=== PATIENT | female | born 1980 | race Caucasian/White ===

== ENCOUNTER 2018-03-13 20:26 | Emergency (ER) | payer SELFPAY ==
[~2018-03-13] VITALS: Ht 157.5 cm; Wt 59.2 kg
[2018-03-13 21:01] LABS: URINE BILIRUBIN - DIPSTICK NEGATIVE (NEGATIVE); URINE BLOOD DIPSTICK LARGE (NEGATIVE); URINE COLOR YELLOW; URINE GLUCOSE - DIPSTICK NEGATIVE (NEGATIVE); URINE KETONE NEGATIVE (NEGATIVE); URINE LEUK ESTERASE TRACE (NEGATIVE); URINE PROTEIN - DIPSTICK >=300 mg/dL (NEG-TRACE); URINE SPECIFIC GRAVITY >=1.030
[2018-03-13 21:02] LABS: URINE CLARITY CLOUDY; URINE NITRITE - DIPSTICK POSITIVE (Negative)
[2018-03-13 21:03] LABS: URINE RBC 25-50 RBC/hpf (0-5); URINE SQUAMOUS EPITHELIAL CELL MANY EPI/hpf (0-FEW)
[2018-03-13] MEDS ORDERED: BACTRIM DS1 TAB PO (21:16)
[2018-03-13] MEDS ORDERED: PYRIDIUM200 MG PO (21:16)
[2018-03-13 21:19] VITALS: BP 117/78
== END 2018-03-13 21:24 | disposition home or self-care (01) | DRG 690 ==
LOC: ED 20:26
PROVIDERS: Family Medicine
DX: N30.00 Acute cystitis without hematuria (principal); F17.210 Nicotine dependence, cigarettes, uncomplicated

== ENCOUNTER 2020-05-29 16:15 | Emergency (ER) | payer SELFPAY ==
[~2020-05-29] VITALS: Ht 167.6 cm; Wt 59.1 kg
[~2020-05-29 16:15] MED LIST: BACTRIM DS1 TAB PO; PYRIDIUM200 MG PO
[2020-05-29] MEDS ORDERED: BACTRIM DS1 TAB PO (17:04)
[2020-05-29 17:20] VITALS: BP 119/71
== END 2020-05-29 17:20 | disposition home or self-care (01) | DRG 603 ==
LOC: ED 16:15
DX: L02.31 Cutaneous abscess of buttock (principal); F17.200 Nicotine dependence, unspecified, uncomplicated; Z53.20 Procedure and treatment not carried out because of patient's decision for unspecified reasons

== ENCOUNTER 2022-07-09 18:50 | Emergency (ER) | payer SELFPAY ==
[~2022-07-09] VITALS: Ht 167.6 cm; Wt 59.0 kg
[2022-07-09 19:56] LABS: URINE BILIRUBIN - DIPSTICK NEGATIVE (NEGATIVE); URINE BLOOD DIPSTICK LARGE (NEGATIVE); URINE GLUCOSE - DIPSTICK 250 mg/dL (NEGATIVE); URINE KETONE 15 mg/dL (NEGATIVE); URINE PROTEIN - DIPSTICK >=300 mg/dL (NEG-TRACE); URINE SPECIFIC GRAVITY >=1.030; URINE UROBILINOGEN - DIPSTICK >=8.0 E.U./dL (0.2)
[2022-07-09 19:57] LABS: URINE COLOR ORANGE; URINE LEUK ESTERASE MODERATE (NEGATIVE); URINE NITRITE - DIPSTICK POSITIVE (Negative)
[2022-07-09 20:02] LABS: URINE BACTERIA MANY hpf; URINE SQUAMOUS EPITHELIAL CELL MANY EPI/hpf (0-FEW); URINE WBC TNTC WBC/hpf (0-5)
[2022-07-09] MEDS ORDERED: LORTAB 1010 MG PO (20:06)
[2022-07-09] MEDS ORDERED: PYRIDIUM200 MG PO (20:06)
[2022-07-09] MEDS ORDERED: BACTRIM DS1 TAB PO (20:06)
[2022-07-09 20:10] VITALS: BP 125/87
== END 2022-07-09 20:14 | disposition home or self-care (01) | DRG 690 ==
LOC: ED 18:50
PROVIDERS: Emergency Medicine
DX: N39.0 Urinary tract infection, site not specified (principal)

== ENCOUNTER 2022-09-27 19:01 | Emergency (ER) | payer SELFPAY ==
[~2022-09-27] VITALS: Ht 167.6 cm; Wt 56.0 kg
[~2022-09-27 19:01] MED LIST changes: +LORTAB 1010 MG PO
[2022-09-27 19:55] VITALS: BP 116/79
[2022-09-27 20:00] VITALS: BP 110/81
[2022-09-27 20:12] LABS: URINE BILIRUBIN - DIPSTICK NEGATIVE (NEGATIVE); URINE BLOOD DIPSTICK LARGE (NEGATIVE); URINE COLOR YELLOW; URINE GLUCOSE - DIPSTICK NEGATIVE (NEGATIVE); URINE KETONE NEGATIVE (NEGATIVE); URINE PROTEIN - DIPSTICK 100 mg/dL (NEG-TRACE); URINE SPECIFIC GRAVITY >=1.030
[2022-09-27 20:14] LABS: URINE LEUK ESTERASE MODERATE (NEGATIVE); URINE NITRITE - DIPSTICK NEGATIVE (Negative)
[2022-09-27 20:15] VITALS: BP 115/79
[2022-09-27 20:18] LABS: URINE RBC 25-50 RBC/hpf (0-5); URINE SQUAMOUS EPITHELIAL CELL FEW EPI/hpf (0-FEW); URINE WBC >100 WBC/hpf (0-5)
[2022-09-27 20:30] VITALS: BP 116/82
[2022-09-27] MEDS ORDERED: MEDDOSEPAK PO (20:30)
[2022-09-27] MEDS ORDERED: PROAIR HFA IN (20:30)
[2022-09-27] MEDS ORDERED: KEFLEX500 MG PO (20:30)
[2022-09-27 20:45] VITALS: BP 112/75
== END 2022-09-27 21:30 | disposition home or self-care (01) | DRG 690 ==
LOC: ED 19:01
PROVIDERS: Nurse Practitioner
DX: N39.0 Urinary tract infection, site not specified (principal); F17.210 Nicotine dependence, cigarettes, uncomplicated; J40 Bronchitis, not specified as acute or chronic